=== PATIENT | male | born 1960 | race Caucasian/White ===

== ENCOUNTER 2024-08-06 09:57 | Emergency (ER) | payer OTHER, SELFPAY ==
--- NOTE | 2024-08-06 10:05 | EX.ED.VIS.EY ---
HPI History of Present Illness Chief Complaint: Eye Problem Informant: patient Onset/Context/Timing Location: Right Eye Onset: Today Context: Sudden Onset Timing: Continuous Worsened by: Nothing Relieved by: Nothing Associated Symptoms Associated Symptoms - Eyes: Foreign body sensation, Pain and Redness History of injury: Yes and Chemical exposure Visual correction: Glasses (Reading) Narrative Narrative: Patient presents after accidentally putting nail glue into his right eye. Patient states he thought he was putting lubricating eyedrops in his eye. Patient states that the bottle of nail glue was sitting beside his eyedrops and he grabbed the wrong bottle. Patient states that he was able to open his eye after this. Patient admits to some decreased vision out of his right eye. Patient admits to a foreign body sensation in his right eye. PFSH PFS Medical History (Updated 08/06/24 @ 11:[address] Tito Lopez DO) Hernia Hypercholesteremia HTN (hypertension) Diverticulitis Home Medications ?Medication ?Instructions ?Recorded ?Last Taken ?Type atorvastatin 10 mg tablet 10 mg PO QHS 12/29/15 Unknown History ciprofloxacin HCl 500 mg tablet 500 mg PO BID ##14 12/29/15 Unknown Rx lisinopril 20 mg tablet 12/29/15 Unknown History metronidazole 500 mg tablet 500 mg PO TID #20 tabs 12/29/15 Unknown Rx Allergy/AdvReac Type Severity Reaction Status Date / Time Sulfa (Sulfonamide Allergy Unknown Unknown Verified 08/06/24 10:07 Antibiotics) Surgical History (Updated 08/06/24 @ 10:[address] Tito Lopez DO) Hx of inguinal herniorrhaphy Social History Smoking Status: Current every day smoker tobacco type: cigarettes ROS ROS ED Constitutional Constitutional ED: Denies chills or fever(s) Eyes Eyes: Reports blurry vision and change in vision ENT ENT ED: Denies rhinorrhea or sore throat Cardiovascular Cardiovascular: Denies chest pain or palpitations Respiratory/Chest Respiratory/Chest: Denies cough or dyspnea Gastrointestinal Gastrointestinal: Denies nausea or vomiting Genitourinary Genitourinary ED: Denies dysuria or hematuria Musculoskeletal Musculoskeletal: Denies back pain or neck pain Integumentary Denies abscess or rash Neurologic Neurologic: Denies headache(s) or weakness Allergic/Immunologic Allergic/Immunologic ED: Denies mouth swelling or urticaria EXAM Physical Exam Const Positive well nourished and well developed General Appearance ED: well developed and NAD HEENT atraumatic Eyes Eyes Narrative: There is some fluid noted on the panel of the upper eyelid and along the margin. Conjunctiva was injected on the right. Pupils are equal, round, and reactive to light. Extraocular muscles are intact. There is no visualized foreign body noted. Tetracaine and fluorescein dye was applied. Under slit-lamp examination, there are no corneal abrasions noted. Conjunctiva was injected. Anterior chamber was clear. There is no cell or flare. There is no hyphema. Neck supple and no JVD Neuro oriented x3, CN's II-XII intact bilaterally, moves all extremities and no sensory deficits noted Sensorium / Orientation: alert Motor Exam: strength 5/5 throughout MDM MDM MDM Narrative Medical decision making narrative: Bacitracin/polymyxin B ointment was ordered for the right eye. Case was discussed with Dr. Wilson from ophthalmology. She recommended using erythromycin ointment instead of the bacitracin polymyxin ointment. She also recommended applying this to the eyelids liberally. Patient was given his first dose here. Patient was given a tube to apply to the right eye 4 times daily. Patient was instructed to follow-up with his primary care physician or ophthalmology in 3 to 5 days. Patient understood and was agreeable with the plan. All questions were answered. Discharge Plan Triage Chief Complaint: Eye Problem ED Provider: Tito Lopez Dx/Rx/DC Orders Clinical Impression: Foreign body of external eye, right, Acute chemical conjunctivitis of right eye, Tobacco use disorder Instructions: ED Conjunctivitis, Nonspecific Prescriptions: No Action atorvastatin 10 MG tablet 10 mg PO QHS lisinopril 20 MG tablet Patient Comments: Take 1 tablet by mouth once daily. metronidazole 500 MG tablet 500 mg PO TID Qty: 20 0RF ciprofloxacin HCl 500 MG tablet 500 mg PO BID Qty: 14 0RF Primary Care Provider: Care Physician,No Primary Referrals: Malvin Bar MD [Non-Staff] - 3-5 Days Brina Wilson MD [Med Staff - Active Staff] - 3-5 Days Print Language: Citizen Of [place] Disposition Disposition: Home, Self Care
[2024-08-06 10:09] VITALS: BP 168/115; PULSE 94; RESP 18; TEMP 36.7; O2SAT 98; BMI 28.5
[2024-08-06] MEDS: Tetracaine 0.5% Ophthalmic Bottle 1 DRP OPHTHALMIC (11:23)
[2024-08-06] MEDS: Erythromycin Base 1 OPTH.TUBE 1 APPLIC RIGHT EYE ×2 (11:24→11:51)
[2024-08-06] MEDS: Fluorescein 1 MG STRIP 1 STRIP OPHTHALMIC (11:24)
[2024-08-06 11:52] VITALS: BP 145/87
== END 2024-08-06 11:56 | disposition home or self-care (01) ==
PROVIDERS: Emergency Provider Emergency Medicine; Visit Provider Emergency Medicine
DX: T52.8X1A Toxic effect of other organic solvents, accidental (unintentional), initial encounter (principal); H10.211 Acute toxic conjunctivitis, right eye; I10 Essential (primary) hypertension; E78.00 Pure hypercholesterolemia, unspecified; F17.210 Nicotine dependence, cigarettes, uncomplicated; Z79.899 Other long term (current) drug therapy
CPT/HCPCS: 99283